=== PATIENT | female | born 2005 | race Two or more races ===

== ENCOUNTER 2024-08-16 10:05 | Outpatient (CLI) | payer OTHER | END 2024-08-16 10:11 | disposition home or self-care (01) | LOC: SONOGRAMA 10:05 | PROVIDERS: ATTEND Internal Medicine | DX: E03.9 Hypothyroidism, unspecified (principal); E78.9 Disorder of lipoprotein metabolism, unspecified; E55.9 Vitamin D deficiency, unspecified ==